=== PATIENT | male | born 1985 | race American Indian/Alaskan Native ===

== ENCOUNTER 2020-11-23 02:23 | Emergency (ER) | payer OTHER, BC ==
[2020-11-23 02:52] VITALS: BP 147/61
[2020-11-23] MEDS ORDERED: IBUPROFEN 800 MG TAB PO ONE (03:01)
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
== END 2020-11-23 05:02 | disposition home or self-care (01) ==
LOC: ED 02:23
DX: R07.89 Other chest pain (principal); R06.00 Dyspnea, unspecified; F17.200 Nicotine dependence, unspecified, uncomplicated; Z79.899 Other long term (current) drug therapy; V87.7XXA Person injured in collision between other specified motor vehicles (traffic), initial encounter; Y93.89 Activity, other specified; Y92.89 Other specified places as the place of occurrence of the external cause; Y99.8 Other external cause status
CPT/HCPCS: 71046; 99283